=== PATIENT | male | born 2005 | race Caucasian/White ===

== ENCOUNTER 2023-03-06 19:08 | Emergency (ER) | payer OTHER ==
[2023-03-06 19:15] VITALS: BP 130/78
--- NOTE | 2023-03-06 19:59 | XRAY Report ---
PROCEDURE: Ankle 3 View RT INDICATIONS: Trauma TECHNIQUE: 3 views of the ankle were acquired. COMPARISON: None. FINDINGS: Bones: Possible acute minimally displaced fracture of the anterior process of the calcaneus. Ankle mortise is normally aligned. No suspicious bony lesions. Soft tissues: No tibiotalar joint effusion. IMPRESSION: Possible acute minimally displaced fracture of the anterior process of the calcaneus. If symptoms p ersist, follow-up radiographs and/or CT or MRI may be helpful for further evaluation. Reviewed by: Davon Collier MD on 03/06/2023 7:57 PM PDT Approved by: Davon Collier MD on 03/06/2023 7:57 PM PDT Station ID: [id number]
--- NOTE | 2023-03-06 20:54 | ED Physician Documentation ---
PD HPI LOWER EXT INJURY - Stated complaint Stated Complaint: R FOOT INJ - Chief complaint Chief Complaint: Trauma Ext - History obtained from History obtained from: Patient - History of Present Illness PD HPI LOW EXT INJURY LOCATION: Right, Ankle, Foot Timing - details: Abrupt onset Pain level max: 8 Pain level now: 4 Improved by: Rest, Immobilization Worsened by: Moving, Palpating Associated symptoms: No: Numbness, Tingling Contributing factors: No: Anticoagulated Recently seen: Not recently seen - Additional information Additional information: Patient is a 17-year-old male who was playing soccer tonight when he excellently fell on the ball injuring his right foot and ankle. Feels better with rest and immobilization, worse with movement and palpation. No numbness or tingling. Not anticoagulated. Review of Systems Musculoskeletal: denies: Neck pain, Back pain Neurologic: denies: Head injury PD PAST MEDICAL HISTORY - Past Medical History Past Medical History: No - Past Surgical History Past Surgical History: No - Allergies Allergies/Adverse Reactions: Allergies Allergy/AdvReac Type Severity Reaction Status Date / Time No Known Drug Allergies Allergy Verified 03/06/23 19:13 - Social History Does the pt smoke?: No Smoking Status: Never smoker Does the pt drink ETOH?: No Does the pt have substance abuse?: No - Immunizations Immunizations are current?: Yes PD ED PE NORMAL - Vitals Vital signs reviewed: Yes - General General: Alert and oriented X 3, No acute distress - HEENT HEENT: Moist mucous membranes - Derm Derm: Warm and dry - Extremities Extremities: Other (Right foot - Tender to palpation and swelling over the dorsum of the midfoot. No tenderness over the base of the fifth metatarsal. Mild tenderness underneath the lateral malleolus. No significant swelling. No tenderness over the plantar aspect of the foot. No tenderness over the calcaneus. NVI) - Neuro Neuro: Alert and oriented X 3 Results - Vitals Vitals: Vital Signs - 24 hr 03/06/23 19:13 Temperature 36.5 C Heart Rate 70 Respiratory 16 Rate Blood Pressure 130/78 O2 Saturation 99 Oxygen O2 Source Room air - Rads (name of study) Right ankle x-ray Relevant Findings:: Final report received, See rad report Right foot x-ray Relevant Findings:: Final report received, See rad report Procedures - Splint (location) - Minor R lower leg Splint applied by: Physician, Tech Type of splint: Fiberglass, Short leg, Posterior Other: Patient tolerated well, No complications, Neurovascular intact, Crutches provided PD Medical Decision Making - ED course Complexity details: reviewed results, re-evaluated patient, considered differential, d/w patient ED course: 17-year-old male with what appears to be a right foot sprain. On the ankle x- ray there is a question of a minimally displaced acute anterior calcaneus fracture. We will place him in a short leg posterior splint, make him nonweightbearing x1 week and have him follow-up with his PCP for repeat x-rays in 1 week. Neurovascularly intact. Declines pain medication here or for home. Patient counseled regarding signs and symptoms for which I believe and urgent re-evaluation would be necessary. Patient with good understanding of and agreement to plan and is comfortable going home at this time This document was made in part using voice recognition software. While efforts are made to proofread this document, sound alike and grammatical errors may occur. Departure - Departure Disposition: 01 Home, Self Care Clinical Impression: Right foot sprain Qualifiers: Encounter type: initial encounter Qualified Code(s): S93.601A - Unspecified sprain of right foot, initial encounter Condition: Good Instructions: ED Sprain Foot Follow-Up: ROSANNE Rosado [Provider Group] - Within 1 week Comments: Please do not bear weight on the foot until seen by your PCM in 1 week for repeat x-rays. Your x-ray results are listed below. On 1 view of your x-rays, there is a possible acute minimally displaced fracture of the anterior process of the calcaneus. This is not visible on other views, but out of caution we have placed you in a splint. It is recommended that if you are still having pain in 1 week, they repeat the x-ray. Please return if you worsen. You can use Motrin or Tylenol as needed for pain. EXAM: [id number] XR/ANKR ([id number]) PROCEDURE: Ankle 3 View RT INDICATIONS: Trauma TECHNIQUE: 3 views of the ankle were acquired. COMPARISON: None. FINDINGS: Bones: Possible acute minimally displaced fracture of the anterior process of the calcaneus. Ankle mortise is normally aligned. No suspicious bony lesions. Soft tissues: No tibiotalar joint effusion. IMPRESSION: Possible acute minimally displaced fracture of the anterior process of the calcaneus. If symptoms persist, follow-up radiographs and/or CT or MRI may be helpful for further evaluation. EXAM: [id number] XR/FTR ([id number]) PROCEDURE: Foot 3 View RT INDICATIONS: R dorsum, midfoot pain, fall TECHNIQUE: 3 views of the foot were acquired. COMPARISON: None. FINDINGS: Bones: Slight valgus alignment at the first MTP. No dislocation. Soft tissues: No suspicious calcifications. IMPRESSION: Possible minimally displaced anterior calcaneal process fracture, better seen on dedicated ankle radiographs. If there is high concern for occult injury, consider repeat radiography or cross- sectional imaging. Discharge Date/Time: 03/06/23 22:36
--- NOTE | 2023-03-06 21:54 | XRAY Report ---
PROCEDURE: Foot 3 View RT INDICATIONS: R dorsum, midfoot pain, fall TECHNIQUE: 3 views of the foot were acquired. COMPARISON: None. FINDINGS: Bones: Slight valgus alignment at the first MTP. No dislocation. Soft tissues: No suspicious calcifications. IMPRESSION: Possible minimally since anterior calcaneal process fracture, better seen on dedicated ankle radiogra phs. If there is high concern for occult injury, consider repeat radiography or cross-sectional imagi ng. Reviewed by: William Villeda MD on 03/06/2023 9:53 PM PDT Approved by: William Villeda MD on 03/06/2023 9:53 PM PDT Station ID: [id number]
== END 2023-03-06 22:36 | disposition home or self-care (01) ==
LOC: ED 19:08
DX: S93.601A Unspecified sprain of right foot, initial encounter (principal); W19.XXXA Unspecified fall, initial encounter; Y93.66 Activity, soccer; Y92.322 Soccer field as the place of occurrence of the external cause
CPT/HCPCS: 29515; 99283